=== PATIENT | female | born 1995 | race Two or more races ===

== ENCOUNTER 2016-08-07 13:55 | Emergency (ER) | payer SELFPAY ==
[2016-08-07 13:55] VITALS: BMI 18.8
[2016-08-07 14:43] VITALS: TEMP 98.6
[2016-08-07] MEDS ORDERED: DEXAMETHASONE PF 10 MG/1 ML VIAL IM ONE (15:29)
--- NOTE | 2016-08-07 15:31 | EDPRACDOC ---
- General Information Stated Complaint: SORE THROAT/PAIN WITH SWALLOWING Time Seen by Provider: 08/07/16 15:21 Information Source: Patient Home Medications: Home Medications Vits W-Ca,Fe,FA(<1Mg) [] 1 tab PO DAILY 06/15/15 Hydrocodone Bit/Acetaminophen [Hydrocodon-Acetaminophen 5-325] 1 - 2 tab PO Q4H PRN #30 tab 01/19/16 Amoxicillin/Clavulanate Potas. [Augmentin] 875 mg PO BID #20 tab 08/07/16 Allergies/Adverse Reactions: Allergies Allergy/AdvReac Type Severity Reaction Status Date / Time No Known Allergies Allergy Verified 08/07/16 15:52 - History of Present Illness Onset: 1WEEK HPI: PT C/O FEELING TIRED AND NO ENERGY WITH SORE THROAT FOR APPROX 1 WEEK. DENIES FEVERS OR CHILLS OR ABD PAIN AT THIS TIME. STATES HURTS TO SWALLOW AND IS DIFFICULT DUE TO SWELLING OF TONSILS. Sore Throat Symptoms: Reports: Pain, Muffled Voice, Hoarse Recent: Reports: None Relevant History of: Reports: None Pain Severity: Reports: Moderate Urinary Output: Normal Oral Intake: Normal Associated Signs and Symptoms: Reports: Other (FATIGUE AND PAINFUL AND DIFFICULT SWALLOWING) ED Past Medical History - History Reviewed Yes Nurses notes reviewed and agree except as marked Travel Outside of [place] in the Last 3 Months?: No No Past Medical History: Yes Patient has no past medical history - Patient Medical History Psychological History: Denies: Substance Use Disorder Systemic History: Denies: Cancer - Family Medical History Denies: Hypertension, Diabetes, Cancer, Stroke, Cardiac Disorders - Social Medical History Smoking Status: Never smoker Social History: Denies: Amphetamine Use, Barbiturate Use, Benzodiazipine Use, Cocaine Use, Heroin Use, Marijuana Use, Methadone Use, MDMA (Ecstasy) Use, Substance Use Disorder ETOH: None Substance Abuse: None Lives With: Spouse Lives In: Home EDM Review of Systems - Review of Systems ROS Negative Except as Marked: Yes All systems reviewed and were negative except as marked Constitutional: Fatigue. negative: Chills, Fever, Loss of Appetite, Weakness Eyes: No Symptoms Reported. negative: Redness, Blurred Vision, Double Vision, Discharge, Pain, Light Sensitive, Photophobia Ears: No Symptoms Reported. negative: Pain, Hearing Loss, Drainage, Ear Pulling Throat: Pain, Swelling, Hoarseness, Erythema Nose: No Symptoms Reported. negative: Congestion, Bleeding, Discharge, Injection, Swelling, Deformity, Ecchymosis, Tender, Abrasion, Laceration Mouth: No Symptoms Reported. negative: Pain, Drooling Respiratory: No Symptoms Reported. negative: Cough, Brassy Cough, Barky Cough, Shortness of Breath, Wheezing, Hemoptysis Cardiovascular: No Symptoms Reported. negative: Chest Pain, Palpitations, Syncope, Edema, Orthopnea, PND, Skin Mottling, Cyanosis Gastrointestinal: No Symptoms Reported. negative: Pain, Constipation, Nausea, Vomiting, Diarrhea, Melena, Formula Intolerance Genitourinary: No Symptoms Reported. negative: Dysuria, Hematuria, Frequency, Discharge, Bleeding, Testicular Pain, Neurological: No Symptoms Reported. negative: Headache, Dizziness, Seizure, Numbness, Weakness, Speech Difficulty, Gait Difficulty Musculoskeletal: No Symptoms Reported. negative: Neck, Chestwall, Ribs, Back, Shoulder, Arm, Elbow, Forearm, Wrist, Hand, Pelvis, Hip, Femur, Knee, Leg, Ankle , Foot Integumentary: No Symptoms Reported. negative: Itching, Rash, Bruising, Wound Allergic/Immunologic: No Symptoms Reported. negative: Hives, Itching Hematologic: No Symptoms Reported. negative: Lymphadenopathy, Easy Bruising, Easy Bleeding Endocrine: No Symptoms Reported. negative: Weight Gain, Weight Loss Psychiatric: No Symptoms Reported. negative: Anxiety, Depression, Hallucinations, Insomnia, Suicidal - Physical Exam Constitutional: Alert (Awake), No apparent distress Oriented to: Time, Person, Place Last recorded Vital Signs: Last Vital Signs Temp 98.6 F 08/07/16 14:42 Pulse 60 08/07/16 14:42 Resp 16 08/07/16 14:42 BP 96/62 L 08/07/16 14:42 Pulse Ox 99 08/07/16 14:42 Oxygen Pulse Oxygen Saturation 99 O2 Device Oxygen Flow Rate Fraction of Inspired Oxygen ( FIO2) - HEENT Head: Normal ( normocephalic) Eye Exam: Normal (PERRL, EOMI, Sclera white) Oropharynx: Red, Tonsillar Hypertrophy Tympanic Membrane: Normal ENT EAC: Normal TMJ: Normal Nose: No Symptoms Reported (septum midline) Neck: Lymphadenopathy (ANTERIOR CERVICAL LAD BILATERAL) - Respiratory/Cardiovascular Respiratory: Normal - CTA (BBS clear to auscultation without adventitious sounds ) Cardiovascular: Normal (RRR without murmur, gallop or rub) - GI Auscultation: Normal (NABS) Palpation: Normal (Soft,No rebound or guarding, non distended) Tenderness: Non tender Crystal's Sign: Negative - Musculoskeletal Back: Normal (Non-Tender) Extremities: Normal (Normal tone, Pulses 2+ No cyanosis or edema, FROM) - Integumentary Skin: Normal, Warm, Dry Lymphatics: Normal (no adenopathy) - Neurologic Memory Impaired: Normal Motor Function: Normal (Normal tone, Pulses 2+ No cyanosis or edema, FROM) Cranial Nerve: Normal (CN II-X11 intact sensation, strength 5/5) Cerebellar: Normal Mood Description: Normal Perception: Normal - Differential Diagnosis Infectious monunucleosis, Peritonsillar abscess (LESS LIKELY UVULA MIDLINE), Pharyngitis Streptococcal, Pharyngitis Viral Decision Time to Discharge: 16:20 - Departure Disposition: Home Condition: Stable Final Diagnosis: Acute pharyngitis Instructions: Pharyngitis (ED) Education/Counseling Given To: Patient Education/Counseling Given Regarding: Diagnosis, Treatment, Prognosis, Follow Up Referrals: None,No Provider [Primary Care Provider] - One Week Prescriptions: Amoxicillin/Clavulanate Potas. [Augmentin] 875 mg PO BID #20 tab Additional Instructions: MOTRIN AND TYLENOL FOR PAIN AND FEVER. RETURN FOR WORSE OR DIFFERENT SYMPTOMS. CHANGE YOUR TOOTHBRUSH AFTER SYMPTOMS RESOLVE.
[2016-08-07 17:13] VITALS: BP 104/68; PULSE 67
== END 2016-08-07 16:27 | disposition home or self-care (01) ==
LOC: EDMC 13:55
DX: J02.9 Acute pharyngitis, unspecified (principal)
CPT/HCPCS: 86308; 96372; 99282; J1100